=== PATIENT | male | born 1940 | race Caucasian/White ===

== ENCOUNTER → 2018-06-19 13:29 | Outpatient (CLI) | payer MEDICARE, MEDICAID, SELFPAY ==
--- NOTE | 2018-06-19 13:38 | DI.RAD.S_ITS ---
PROCEDURE: XR PELVIS 1-2V INDICATIONS: hip pain TECHNIQUE: 1 view(s) of the pelvis acquired. COMPARISON: None. FINDINGS: Bones: No fractures or dislocations. No suspicious bony lesions. Mild joint space narrowing and periarticular osteophyte formation at the bilateral hip joints. Soft tissues: Visualized bowel gas pattern is normal. No suspicious soft tissue calcifications. IMPRESSION: Bilateral hip osteoarthritis. No acute fracture. No osseous lesion. If symptoms and/or clinical suspicion for pathology persist, further assessment with repeat, or advanced imaging (e.g., CT, MRI, or bone scan) may be helpful for further assessment. Dictated by: Emily Grier M.D. on 06/19/2018 at 14:06 Approved by: Emily Grier M.D. on 06/19/2018 at 14:06
== END ==
PROVIDERS: PCP Family Medicine; Visit Provider Physician Assistant
DX: M16.0 Bilateral primary osteoarthritis of hip (principal)
CPT/HCPCS: 72170

== ENCOUNTER 2018-08-18 09:53 | Day surgery (SDC) | payer MEDICARE, MEDICAID, SELFPAY ==
[2018-08-18 10:15] VITALS: BP 121/77; PULSE 78; RESP 20; TEMP 36.6; O2SAT 97; BMI 29.7
[2018-08-18] MEDS: SODIUM CHLORIDE 0.9% 1,000 ML 200 ML IV (10:18)
--- NOTE | 2018-08-18 10:59 | PM.HP.1 ---
History of Present Illness Date Patient Seen: 08/18/18 Time Patient Seen: 10:59 Chief complaint: [id number] Narrative: Patient post an APR with end colostomy for rectal cancer. He is here for exam. He has been having some blood in his ostomy. He has had polyps removed since the operation. Patient History Medical History BPH (benign prostatic hyperplasia) (Chronic) Colostomy present (Chronic) Elevated PSA (Chronic) Anemia (Resolved) Cholelithiasis (Resolved) Colorectal cancer, stage II (Resolved) DVT, lower extremity (Resolved ~2010) Liver metastasis (Resolved) Tumor, thyroid (Resolved) Surgical History History of colon resection (Resolved 01/2007) History of thyroid surgery (Resolved) Hx of resection of liver (Resolved 01/2011) Hx of resection of rectum (Resolved 01/2016) Status post cholecystectomy Family & Social History Family History: Reviewed 08/18/18 by Lionel Banks MD Social History: household members none Tobacco & Substance use: Smoking Status Never smoker alcohol intake current Meds Home Medications Medication Instructions Recorded Confirmed Type levothyroxine [Synthroid] 50 mcg PO DAILY 08/18/18 08/18/18 History Allergies Allergy/AdvReac Type Severity Reaction Status Date / Time No Known Drug Allergies Allergy Verified 06/24/18 08:31 Review of Systems Review of Systems All systems reviewed & are unremarkable except as noted in HPI and below Gastrointestinal Comments: Having some diarrhea as well. Exam Vital Signs (past 8 hours): - 08/18/18 10:15 Temperature 98 F Pulse Rate 78 Respiratory Rate 20 Blood Pressure 121/77 Pulse Oximetry 97 Oxygen Delivery Method Room Air Narrative Exam Narrative: Operative gentleman no apparent distress. Lungs are clear no rales or rhonchi heart regular rate and rhythm no murmur gallop abdomen is protuberant soft nontender without mass. Ostomy in left abdomen. Alert and oriented x3. Assessment & Plan Plan: Assessment/Plan Narrative: Will perform an evaluation of his remaining colon. I have discussed the procedure and the rationale with the patient including risks of bleeding, perforation which would necessitate a major operation, failure to find remove all lesions and the potential to tattoo. They appeared to understand and wished to proceed.
--- NOTE | 2018-08-18 11:02 | PM.PREOP ---
Pre-operative Note Interval Note Pre-op Check: Yes History & Physical exam performed today by Physician Changes: No ASA Class (for procedural sedation): II
[2018-08-18] MEDS: MIDAZOLAM 5 MG/5 ML VIAL IV (11:25)
[2018-08-18] MEDS: fentaNYL 250 MCG/5 ML INJ IV (11:26)
--- NOTE | 2018-08-18 11:37 | PM.OP.ENDO ---
Operative Date/Time/Diagnoses Date of procedure: 08/18/18 Time of procedure: 11:37 Pre-op diagnosis: History of rectal cancer with mets to the liver Post-op diagnosis: same (Normal exam) Procedure & Clinicians Study performed: Colonoscopy of remaining segment of the colon Same procedure as scheduled: Yes Indications: History of colon cancer Procedure Notes SCOAP/Timeout: Performed Procedure in detail: Patient is placed supine on the stretcher. His ostomy bag was removed. Digital exam was unremarkable. Scope inserted in the ostomy and advanced through the remaining colon to the level of the cecum. The cecum was identified by the ileocecal valve and the appendiceal opening. I was unable to cannulate the ileocecal valve. Scope was gradually brought out. I could identify no mucosal lesions going in or out. The scope was removed the patient tolerated the procedure well. Scope withdrawal time: Not applicable Sedation minutes: 20 Findings: other findings (Normal residual colon) Specimen(s): none sent Complications: none Recommendations: Colonscopy in 3 years Follow up: as needed Disposition: PACU
[2018-08-18 11:46] VITALS: BP 128/67; PULSE 66; RESP 16; TEMP 37.1; O2SAT 98
--- NOTE | 2018-08-18 12:39 | SUR.PHASEII ---
checked on pt for serjio ryan belly soft, + bowel tone. no nausea no pain.
[2018-08-18 12:40] VITALS: BP 122/70; PULSE 62; RESP 17; TEMP 36.6; O2SAT 99
--- NOTE | 2018-08-18 12:55 | SUR.PHASEII ---
pt ambulated several times around station, vss, bellely soft with + bt's waiting for md to return call.
--- NOTE | 2018-08-18 13:20 | SUR.PHASEII ---
office called, no md, paged. pt's assessment unchanged, would like to go home.
--- NOTE | 2018-08-18 13:35 | SUR.PHASEII ---
dr holden in to see pt. ok to go home, colostomy bag w8ith opening placed so pt can let air out.
[2018-08-18 13:37] VITALS: BP 124/69; PULSE 66; RESP 16; TEMP 36.7; O2SAT 96
--- NOTE | 2018-08-18 13:59 | SUR.PHASEII ---
pt was deamed to go to phase 2 from endo room per tato bassett in pacu. shelby initially assumed care of pt, then care was taken over by this rn. dr holden came on unit, explained pt's inability to pass gas, soft belly and + bowel tones. new colostomy appliance placed by md so pt can open bag and release gas. pt left soon after and left in stable condition.
== END 2018-08-18 13:54 | disposition home or self-care (01) ==
PROVIDERS: PCP Family Medicine; Visit Provider Specialist
PROC: 0DJD8ZZ Inspection of Lower Intestinal Tract, Via Natural or Artificial Opening Endoscopic (ICD-10-PCS; CPT 45378; principal; 2018-08-18 10:45)
DX: K94.01 Colostomy hemorrhage (principal); Z85.038 Personal history of other malignant neoplasm of large intestine; Z86.010 Personal history of colon polyps; N40.0 Benign prostatic hyperplasia without lower urinary tract symptoms; Z93.3 Colostomy status
CPT/HCPCS: 44388; 99152; J2250; J3010

== ENCOUNTER → 2018-08-25 09:26 | Outpatient (CLI) | payer MEDICARE, MEDICAID, SELFPAY ==
[2018-08-25 10:23] LABS: Add Manual Diff / Slide Review NO; Basophils Percent Auto 0.8 % (0-2); Eosinophils Percent Auto 2.1 % (2-4); Hematocrit 41.5 % (41-53); Hemoglobin 14.2 g/dL (13.5-17.5); Lymphocytes Percent Auto 32.2 % (25-40); Mean Corpuscular HGB Conc 34.3 % (30-36); Mean Corpuscular Hemoglobin 31.1 PG (26-34); Mean Corpuscular Volume 90.4 fL (80-100); Monocytes Percent Auto 7.5 % (3-14); Neutrophils Absolute Auto 2700 /uL (3000-5900); Neutrophils Percent Auto 57.4 % (50-75); Platelet Count 167 X10^3/uL (150-400); Red Blood Cell Count 4.59 X10^6/uL (4.5-5.9); Red Cell Distribution Width 14.4 % (11.6-14.8); White Blood Cell Count 4.6 X10^3/uL (4.5-11.0)
[2018-08-25 10:32] LABS: Alanine Aminotransferase 33 IU/L (21-72); Albumin 4.4 g/dL (3.5-5.0); Albumin Globulin Ratio 1.3 (1.0-2.8); Alkaline Phosphatase 124 U/L (38-126); Aspartate Aminotransferase 34 IU/L (17-59); BUN Creatinine Ratio 27.1 (6-22); Bilirubin Total 1.1 mg/dL (0.2-1.3); Blood Urea Nitrogen 19 mg/dL (9-20); Carbon Dioxide 30 mmol/L (22-32); Chloride 102 mmol/L (98-107); Cholesterol 187 mg/dL (140-199); Estimated Glomerular Filt Rate > 60.0 mL/min (>60); Globulin 3.3 g/dL (1.7-4.1); Glucose 92 mg/dL (80-110); HDL Cholesterol 50 mg/dL (40-60); HEMOLYSIS < 15 (0-50); LDL Cholesterol Calculated 104 mg/dL (<100); Potassium 3.9 mmol/L (3.4-5.1); Sodium 144 mmol/L (137-145); Total Protein 7.7 g/dL (6.3-8.2); Triglycerides 164 mg/dL (35-150)
[2018-08-25 10:59] LABS: Free T3, Triiodothyronine Free 2.91 pg/mL (2.77-5.27); Free T4, Direct Thyroxine 0.79 ng/dL (0.78-2.19)
[2018-08-25 11:00] LABS: Prostate Specific Antigen Scrn 4.35 ng/mL (0.1-4.0)
[2018-08-25 11:13] LABS: Thyroid Stimulating Hormone 4.16 uIU/mL (0.47-4.68)
== END ==
PROVIDERS: PCP Family Medicine; Visit Provider Family Medicine
DX: E03.9 Hypothyroidism, unspecified (principal); Z87.438 Personal history of other diseases of male genital organs; Z85.038 Personal history of other malignant neoplasm of large intestine; Z12.5 Encounter for screening for malignant neoplasm of prostate
CPT/HCPCS: 36415; 80053; 80061; 84439; 84443; 84481; 85025; G0103

== ENCOUNTER → 2019-07-28 09:20 | Outpatient (CLI) | payer MEDICARE, MEDICAID, SELFPAY ==
[2019-07-28 11:02] LABS: Free T3, Triiodothyronine Free 2.95 pg/mL (2.77-5.27); Free T4, Direct Thyroxine 1.04 ng/dL (0.78-2.19)
[2019-07-28 11:16] LABS: Thyroid Stimulating Hormone 3.09 uIU/mL (0.47-4.68)
== END ==
PROVIDERS: PCP Family Medicine; Visit Provider Family Medicine
DX: E03.9 Hypothyroidism, unspecified (principal)
CPT/HCPCS: 36415; 84439; 84443; 84481

== ENCOUNTER → 2019-09-06 08:26 | Outpatient (CLI) | payer MEDICARE, MEDICAID, SELFPAY ==
--- NOTE | 2019-09-06 09:21 | DI.CT.S_ITS ---
PROCEDURE: CT CHEST ABD PEL W CON INDICATIONS: follow up colon and rectal cancer TECHNIQUE: After the administration of oral and intravenous contrast, 5 mm thick sections acquired from the lung apices to the symphysis. 5 mm coronal and sagittal reformats were performed, with additional 7 mm coronal MIP reformats through the lungs. For radiation dose reduction, the following was used: automated exposure control, adjustment of mA and/or kV according to patient size. COMPARISON: [facility], CT, CHEST/ABD/PEL WITH CONTRAST, 12/12/2017, 11:38. FINDINGS: Image quality: Excellent. CHEST: Lungs and pleura: No acute airspace opacities. Scarring or atelectasis at the right lung base. No pleural effusions or pneumothorax. Central and peripheral airways appear patent and normal in caliber. Mediastinum: Heart size is normal. Three-vessel coronary artery calcifications. No pericardial effusion. No mediastinal or hilar adenopathy by size criteria. Thoracic aorta and central pulmonary arteries are normal in size. Esophagus is normal in caliber. No hiatal hernia. Chest wall: Left-sided port with the catheter tip in the lower third of the SVC. No axillary or supraclavicular adenopathy by size criteria. Left thyroid gland is surgically absent. No nodule the right seen. Prior right sided rib fractures. ABDOMEN: Solid organs: Right hepatectomy. No focal lesion. Gallbladder is absent. Biliary system is non dilated. Pancreas is atrophic. Spleen is normal in size and enhancement. No adrenal nodules. Kidneys demonstrate normal size and enhancement, without hydronephrosis. Peritoneum and bowel: Left abdomen diverting colostomy. Post distal colectomy. No recurrent mass or adenopathy. Bowel loops demonstrate normal wall thickness and caliber. No free fluid or air. Nodes and vessels: No retroperitoneal or mesenteric adenopathy by size criteria. No AAA. Infrarenal IVC filter. Miscellaneous: Midline ventral abdominal wall rectus diastases. There is atrophy of the right abdominal wall must which are compared to the left. PELVIS: Genitourinary: Bladder wall thickness is normal. Marked prostatomegaly. Miscellaneous: No inguinal hernias or adenopathy. Bones: No suspicious bony lesions. Moderate multilevel degenerative change. No vertebral body compression fractures. IMPRESSION: 1. No recurrent mass. No suspicious adenopathy. Post distal colectomy and left diverting colostomy. 2. No solid organ metastasis. Post right hepatectomy. 3. No suspicious pulmonary or osseous lesion. Dictated by: Benjamin Cabezas M.D. on 09/06/2019 at 15:19 Approved by: Benjamin Cabezas M.D. on 09/06/2019 at 16:40
== END ==
PROVIDERS: PCP Family Medicine
DX: Z08 Encounter for follow-up examination after completed treatment for malignant neoplasm (principal); Z85.038 Personal history of other malignant neoplasm of large intestine; Z85.048 Personal history of other malignant neoplasm of rectum, rectosigmoid junction, and anus; N40.0 Benign prostatic hyperplasia without lower urinary tract symptoms; Z93.3 Colostomy status; Z90.49 Acquired absence of other specified parts of digestive tract
CPT/HCPCS: 71260; 74177; Q9967

== ENCOUNTER 2020-01-06 06:48 | Day surgery (SDC) | payer MEDICARE, MEDICAID, SELFPAY ==
[2020-01-06 07:35] VITALS: BP 133/77; PULSE 85; RESP 16; TEMP 36.8; O2SAT 97; BMI 28.6
[2020-01-06] MEDS: SODIUM CHLORIDE 0.9% 1,000 ML 84 ML IV (07:45)
--- NOTE | 2020-01-06 07:53 | P.HP_ITS ---
History of Present Illness History of Present Illness Date Patient Seen: 01/06/20 Time Patient Seen: 07:53 Chief complaint: [id number] Narrative: Patient is a gentleman here for a colonoscopy. He gets them every 1- 3 years. He has had colon resection/ APR and liver resection He has frequent polyps Patient History Medical History Anemia (Resolved) BPH (benign prostatic hyperplasia) (Chronic) Cholelithiasis (Resolved) Colorectal cancer, stage II (Resolved) Colostomy present (Chronic) DVT, lower extremity (Resolved ~2010) Elevated PSA (Chronic) Liver metastasis (Resolved) Tumor, thyroid (Resolved) Surgical History History of colon resection (Resolved 01/2007) History of thyroid surgery (Resolved) Hx of resection of liver (Resolved 01/2011) Hx of resection of rectum (Resolved 01/2016) Status post cholecystectomy Family & Social History Family History Father No problems noted. Mother No problems noted. Social History: household members none Tobacco & Substance use: Smoking Status Never smoker alcohol intake former Substance Use Type does not use Meds Home Medications and Allergies Home Medications Medication Instructions Recorded Confirmed Type adjuvant AS01B (PF)vial 1 of 2 0.5 ml IM ONCE #0.5 ml 08/28/18 01/06/20 Rx pneumoc 13-alexey conj-dip cr(PF) 0.5 0.5 ml IM ONCE #0.5 ml 08/28/18 01/06/20 Rx mL IM syringe finasteride 5 mg tablet 5 mg PO DAILY #90 tab 08/04/19 01/06/20 Rx levothyroxine 50 mcg tablet 50 mcg PO DAILY #90 tab 08/04/19 01/06/20 Rx flaxseed oil 1,000 mg PO BID 09/15/19 01/06/20 History Allergies Allergy/AdvReac Type Severity Reaction Status Date / Time No Known Drug Allergies Allergy Verified 01/06/20 07:34 Review of Systems Review of Systems ROS: Yes All systems reviewed with the patient and are negative except as otherwise documented Exam Vital Signs (past 8 hours): - 01/06/20 07:35 Temperature 98.2 F Pulse Rate 85 Respiratory Rate 16 Blood Pressure 133/77 Pulse Oximetry 97 Oxygen Delivery Method Room Air Narrative Exam Narrative: Pleasant cooperative patient no apparent distress. Lungs are clear to auscultation. No rales or rhonchi. Heart regular rate and rhythm no murmur gallop. Abdomen is soft nontender without mass. Patient has a right subcostal scar a midline scar on ostomy is left lower quadrant. No obvious hernias. Patient is alert and oriented x3. Assessment & Plan Assessment & Plan narrative: The patient for a screening colonoscopy. I have discussed the procedure with them. Risks of bleeding, perforation which would necessitate major operation, failure to find remove all lesions, the potential tattoo were all discussed. All questions were answered. They wished to proceed.
--- NOTE | 2020-01-06 07:55 | PM.PREOP ---
Pre-operative Note Interval Note History & Physical reviewed/Exam performed by Physician: Yes Changes to H&P: No ASA Class (for procedural sedation): II
[2020-01-06] MEDS: fentaNYL 250 MCG/5 ML INJ IV (07:59)
[2020-01-06] MEDS: MIDAZOLAM 5 MG/5 ML VIAL IV (07:59)
--- NOTE | 2020-01-06 08:21 | SUR.OPER ---
GLASSES IN LABELED BAG TO PACU WITH PATIENT.
[2020-01-06 08:32] VITALS: BP 116/72; PULSE 73; RESP 19; TEMP 36.6; O2SAT 97
[2020-01-06 08:37] VITALS: BP 115/71; PULSE 73; RESP 15; O2SAT 97
--- NOTE | 2020-01-06 08:40 | PM.OP.ENDO ---
Operative Date/Time/Diagnoses Date of procedure: 01/06/20 Time of procedure: 08:40 Pre-op diagnosis: History of rectal cancer post APR. Last exam over 2 years ago Post-op diagnosis: same Procedure & Clinicians Study performed: Colonoscopy Same procedure as scheduled: Yes Indications: Surveillance Surgeon: Lionel Banks Procedure Notes SCOAP/Timeout: Perform Procedure in detail: Patient was placed supine on the bed and underwent IV sedation consistency of fentanyl and Versed. This was directed by the surgeon. The scope was advanced through the left lower quadrant ostomy and into the colon. Scope was slowly advanced to the level the cecum. The cecum was identified by the ileocecal valve and the appendiceal opening. The scope was gradually brought out. I irrigated is a came out removing any debris that was present. The scope was brought very slowly through the ostomy this area. No lesions were seen. The patient tolerated the procedure well. Scope withdrawal time: Eight minutes Sedation minutes: 21 Specimen(s): none sent Complications: none Post-procedure Recommendations: Other recommendation (Colonoscopy in 2 years) Follow up: as needed Disposition: PACU
[2020-01-06 08:42] VITALS: BP 115/69; PULSE 73; RESP 19; TEMP 36.2; O2SAT 92
[2020-01-06 08:57] VITALS: BP 124/75; PULSE 66; RESP 16; TEMP 36.6; O2SAT 99
--- NOTE | 2020-01-06 09:01 | SUR.PHASEII ---
Lab drawn from left AC on one stick. Specimen to lab. Tolerated well. Called friend to notify of pending discharge from PACU.
[2020-01-06 09:52] LABS: Carcinoembryonic Antigen 0.8 ng/mL (0.1-3.0)
== END 2020-01-06 09:15 | disposition home or self-care (01) ==
PROVIDERS: PCP Family Medicine; Referring Provider Specialist; Visit Provider Specialist
PROC: 0DJD8ZZ Inspection of Lower Intestinal Tract, Via Natural or Artificial Opening Endoscopic (ICD-10-PCS; CPT 45378; principal; 2020-01-06 07:45)
DX: Z12.11 Encounter for screening for malignant neoplasm of colon (principal); Z85.040 Personal history of malignant carcinoid tumor of rectum; Z93.3 Colostomy status
CPT/HCPCS: G0105; 36415; 82378; 99152; J2250; J3010

== ENCOUNTER → 2020-12-06 16:53 | Outpatient (CLI) | payer MEDICARE, MEDICAID, SELFPAY ==
[2020-12-06] MEDS: COVID-19 VACC #1, MRNA(MOD) 100 MCG/0.5 ML VIAL IM (16:57)
== END ==
PROVIDERS: PCP Family Medicine; Visit Provider Internal Medicine
DX: Z23 Encounter for immunization (principal)
CPT/HCPCS: 0011A; 91301

== ENCOUNTER → 2021-01-04 10:45 | Outpatient (CLI) | payer MEDICARE, MEDICAID, SELFPAY ==
[2021-01-04] MEDS: COVID-19 VACC #2, MRNA(MOD) 100 MCG/0.5 ML VIAL IM (10:50)
== END ==
PROVIDERS: PCP Family Medicine; Visit Provider Internal Medicine
DX: Z23 Encounter for immunization (principal)
CPT/HCPCS: 0012A; 91301

== ENCOUNTER → 2021-03-27 12:52 | Outpatient (CLI) | payer MEDICARE, MEDICAID, SELFPAY ==
[2021-03-27 14:47] LABS: BUN Creatinine Ratio 20.6 (6-22); Blood Urea Nitrogen 14 mg/dL (9-20); Estimated Glomerular Filt Rate > 60.0 mL/min (>60)
[2021-03-27 14:56] LABS: Total Iron Binding Capacity 361 ug/dL (261-462)
[2021-03-27 15:19] LABS: Ferritin 69 ng/mL (18-464)
[2021-03-27 15:49] LABS: Folate 17.7 ng/mL (2.76-20.0); Vitamin B12 254 pg/mL (239-931)
== END ==
PROVIDERS: PCP Registered Nurse; Referring Provider Specialist; Visit Provider Specialist
DX: D64.9 Anemia, unspecified (principal); Z85.038 Personal history of other malignant neoplasm of large intestine
CPT/HCPCS: 36415; 82565; 82607; 82728; 82746; 83550; 84520

== ENCOUNTER → 2021-03-29 09:56 | Outpatient (CLI) | payer MEDICARE, MEDICAID, SELFPAY ==
--- NOTE | 2021-03-29 09:59 | DI.CT.S_ITS ---
PROCEDURE: CT CHEST ABD PEL W CON INDICATIONS: r/o met. post right colon and rectal cancer/liver resection TECHNIQUE: After the administration of oral and intravenous contrast, 5 mm thick sections acquired from the lung apices to the symphysis. 5 mm coronal and sagittal reformats were performed, with additional 7 mm coronal MIP reformats through the lungs. For radiation dose reduction, the following was used: automated exposure control, adjustment of mA and/or kV according to patient size. COMPARISON: [facility], CT, CT CHEST ABD PEL W CON, 09/06/2019, 10:29. [facility], CT, CHEST/ABD/PEL WITH CONTRAST, 12/12/2017, 11:38. FINDINGS: Image quality: Excellent. CHEST: Lungs and pleura: No acute airspace opacities. No pleural effusions or pneumothorax. Central and peripheral airways appear patent and normal in caliber. Mediastinum: Heart size is normal. No pericardial effusion. No mediastinal or hilar adenopathy by size criteria. Thoracic aorta and central pulmonary arteries are normal in size. Esophagus is normal in caliber. No hiatal hernia. A Port-A-Cath from left-sided approach extends across the midline into the distal SVC. Chest wall: No axillary or supraclavicular adenopathy by size criteria. Thyroid gland appears resected on the left and normal on the right. . ABDOMEN: Solid organs: Liver is reduced in size related to prior right hepatic lobe resection. The remaining liver is normal in enhancement. Gallbladder appears absent . Biliary system is non dilated. Pancreas enhances normally. Spleen is normal in size and enhancement. No adrenal nodules. Kidneys demonstrate normal size and enhancement, without hydronephrosis. Peritoneum and bowel: Bowel loops demonstrate normal wall thickness and caliber. No free fluid or air. Nodes and vessels: No retroperitoneal or mesenteric adenopathy by size criteria. Aorta and inferior vena cava are normal in size. IVC filter in place, expected positioning. Miscellaneous: No ventral hernias. Prior ostomy performed left lower abdomen. Through the abdomen and pelvis there is no evidence of adenopathy or recurrent neoplasm. PELVIS: Genitourinary: Bladder wall thickness is normal. Prostate enlargement is again noted, approximately 6.6 cm in maximal axial dimension. Miscellaneous: No inguinal hernias or adenopathy. Bones: No suspicious bony lesions. No vertebral body compression fractures. IMPRESSION: No mass lesion found, no adenopathy seen. Left lower abdomen ostomy site appears normal. Expected postsurgical changes after right hepatic lobe resection. No recurrent neoplasm suspected. Dictated by: Terry Cavanaugh M.D. on 03/29/2021 at 15:39 Approved by: Teryr Cavanaugh M.D. on 03/29/2021 at 15:45
== END ==
PROVIDERS: PCP Registered Nurse; Referring Provider Specialist; Visit Provider Specialist
DX: Z08 Encounter for follow-up examination after completed treatment for malignant neoplasm (principal); Z85.038 Personal history of other malignant neoplasm of large intestine; Z85.048 Personal history of other malignant neoplasm of rectum, rectosigmoid junction, and anus; Z85.89 Personal history of malignant neoplasm of other organs and systems
CPT/HCPCS: 71260; 74177; Q9967

== ENCOUNTER → 2021-04-03 13:05 | Outpatient (CLI) | payer MEDICARE, MEDICAID, SELFPAY ==
[2021-04-03 14:02] LABS: COVID19 -Nasal RAPID Negative (Negative)
== END ==
PROVIDERS: PCP Registered Nurse; Visit Provider Specialist
DX: Z20.822 Contact with and (suspected) exposure to COVID-19 (principal)
CPT/HCPCS: 87635; C9803

== ENCOUNTER → 2021-04-04 07:34 | Day surgery (SDC) | payer MEDICARE, MEDICAID, SELFPAY ==
[2021-04-04] VITALS (8 sets, daily range): BP systolic 117–135; BP diastolic 57–70; PULSE 62–83; RESP 10–20; TEMP 36.6–37; O2SAT 97–100; BMI 26.4
[2021-04-04] MEDS: LACTATED RINGERS 1,000 ML 100 ML IV (08:27)
--- NOTE | 2021-04-04 08:32 | PM.HP.1 ---
History of Present Illness History of Present Illness Date Patient Seen: 04/04/21 Time Patient Seen: 08:32 Chief complaint: SDC Narrative: The patient is a gentleman with a Port-A-Cath that is no longer in use. He is here for removal. Patient History Medical History Anemia BPH (benign prostatic hyperplasia) Cholelithiasis Colorectal cancer, stage II Colostomy present DVT, lower extremity (~2010) Elevated PSA History of secondary liver cancer Hx of malignant neoplasm of rectum Liver metastasis Prostate cancer screening declined Screening for malignant neoplasm of prostate Tumor, thyroid Surgical History History of colon resection (01/2007) History of thyroid surgery Hx of resection of liver (01/2011) Hx of resection of rectum (01/2016) Status post cholecystectomy Family & Social History Family History Father No problems noted. Mother No problems noted. Social History: household members none Tobacco & Substance use: Smoking Status Never smoker alcohol intake former Substance Use Type does not use Meds Home Medications and Allergies Home Medications Medication Instructions Recorded Confirmed Type adjuvant AS01B (PF)vial 1 of 2 0.5 ml IM ONCE #0.5 ml 08/28/18 03/30/21 Rx pneumoc 13-alexey conj-dip cr(PF) 0.5 0.5 ml IM ONCE #0.5 ml 08/28/18 03/30/21 Rx mL IM syringe flaxseed oil 1,000 mg PO BID 09/15/19 03/30/21 History Allergies Allergy/AdvReac Type Severity Reaction Status Date / Time No Known Drug Allergies Allergy Verified 02/10/21 15:25 Review of Systems Review of Systems Narrative: No cough or cold. No breathing issues. No heart problems. Ostomy is functioning well. Exam Vital Signs (past 8 hours): - 04/04/21 08:17 Temperature 98.6 F Pulse Rate 66 Respiratory Rate 20 Blood Pressure 135/70 Pulse Oximetry 99 Oxygen Delivery Method Room Air Narrative Exam Narrative: Patient is alert. Lungs are clear. No rales or rhonchi heart regular rate and rhythm without murmur gallop. Ostomy has an opaque bag over it and I left it in place. Abdomen is otherwise soft. Patient has no rashes in the area of his port which is in the left infraclavicular fossa. Assessment & Plan Assessment & Plan narrative: Patient with a port for removal. I have discussed the procedure with him. Small risk of bleeding infection scarring.
--- NOTE | 2021-04-04 08:34 | PM.PREOP ---
Pre-operative Note COVID-19 COVID-19 status: Negative Result date/Date tested (Pos, Neg/Pending): 04/03/21 Interval Note History & Physical reviewed/Exam performed by Physician: Yes Changes to H&P: No
[2021-04-04] MEDS: CEFAZOLIN 1 GM VIAL 2 GM IV (08:58)
--- NOTE | 2021-04-04 09:04 | SUR.OPER ---
Supine on padded OR bed, head on pillow, Left arm padded and tucked at side, right arm on padded arm board <90 degrees abduction, legs uncrossed, safety belt at thigh, tape over blanket over lower legs .
[2021-04-04] MEDS: BUPIVACAINE 0.5% (PF) VIAL 30 ML INJ (09:08)
--- NOTE | 2021-04-04 09:57 | PM.OP.1 ---
Operative Date/Time/Diagnoses Date of procedure: 04/04/21 Time of procedure: 09:41 Pre-op diagnosis: History of colon cancer. Port-A-Cath in place which is no longer in use. Post-op diagnosis: same Procedure & Clinicians Procedure: Removal of Port-A-Cath Same procedure as scheduled: Yes Indications: No longer in use Port-A-Cath Surgeon: Lionel Banks Click Yes if Unassisted: Yes Anesthesia Type: General Operative Notes Findings: Port removed intact Closure Type: primary Specimen(s): none sent Prosthetic devices, grafts, tissues, transplants, or devices: None Estimated Blood Loss (mL): 5 Procedure in detail: Patient is placed supine on his table in the operating room and underwent general LMA anesthesia. He was prepped and draped in the usual fashion. Local anesthetic was infiltrated in a field block fashion an incision made through the old scar. Identified the catheter and it from surrounding structures. I placed a pursestring around the catheter in the subcu and pulled the catheter out cinching the pursestring down to close off the canal. I then removed the port including the anchoring stitches and the investing pocket. The subcu was closed with interrupted 3-0 Vicryl. The skin was closed a running 4-0 Vicryl subcuticular stitch and Steri-Strips. Dressing was applied and the patient tolerated the procedure well. Complications: none Post-operative Condition: stable Disposition: PACU
--- NOTE | 2021-04-04 10:30 | SUR.PHASEII ---
Note: pt declined ice bag. States does not need it. Pt teaching regarding benefit performed. Pt politely declined taking ice pack with him upon discharge.
== END | disposition home or self-care (01) ==
PROVIDERS: PCP Registered Nurse; Referring Provider Specialist; Visit Provider Specialist
PROC: (CPT 36590; principal; 2021-04-04 08:45)
DX: Z45.2 Encounter for adjustment and management of vascular access device (principal)
CPT/HCPCS: 36590; J0690; J2704; J3010

== ENCOUNTER → 2021-05-31 10:24 | Outpatient (CLI) | payer MEDICARE, MEDICAID, SELFPAY ==
[2021-05-31 11:12] LABS: Add Manual Diff / Slide Review NO; Basophils Absolute Auto 0 /uL (0-100); Eosinophils Absolute Auto 100 /uL (0-450); Eosinophils Percent Auto 2.1 % (2-4); Hematocrit 39.1 % (41-53); Hemoglobin 13.2 g/dL (13.5-17.5); Lymphocytes Absolute Auto 1600 /uL (1100-4500); Lymphocytes Percent Auto 37.3 % (25-40); Mean Corpuscular HGB Conc 33.8 % (30-36); Mean Corpuscular Hemoglobin 30.9 PG (26-34); Mean Corpuscular Volume 91.2 fL (80-100); Monocytes Absolute Auto 500 /uL (0-900); Monocytes Percent Auto 10.7 % (3-14); Neutrophils Absolute Auto 2100 /uL (1500-7000); Neutrophils Percent Auto 48.9 % (50-75); Platelet Count 162 X10^3/uL (150-400); Red Blood Cell Count 4.28 X10^6/uL (4.5-5.9); White Blood Cell Count 4.3 X10^3/uL (4.5-11.0)
[2021-05-31 12:20] LABS: Alanine Aminotransferase 24 IU/L (<50); Albumin 3.9 g/dL (3.5-5.0); Albumin Globulin Ratio 1.2 (1.0-2.8); Alkaline Phosphatase 99 U/L (38-126); Aspartate Aminotransferase 33 IU/L (17-59); BUN Creatinine Ratio 34.8 (6-22); Bilirubin Total 0.7 mg/dL (0.2-1.3); Blood Urea Nitrogen 24 mg/dL (9-20); Calcium 9.3 mg/dL (8.4-10.2); Carbon Dioxide 31 mmol/L (22-32); Chloride 103 mmol/L (98-107); Estimated Glomerular Filt Rate > 60.0 mL/min (>60); Globulin 3.2 g/dL (1.7-4.1); Glucose 88 mg/dL (80-110); HEMOLYSIS < 15 (0-50); Potassium 4.4 mmol/L (3.4-5.1); Sodium 138 mmol/L (137-145); Total Protein 7.1 g/dL (6.3-8.2)
[2021-05-31 12:41] LABS: Free T4, Direct Thyroxine 0.61 ng/dL (0.78-2.19)
[2021-05-31 12:55] LABS: Thyroid Stimulating Hormone 5.58 uIU/mL (0.47-4.68)
[2021-06-04 08:40] LABS: Fecal Immunochemical Test Negative (Negative)
== END ==
PROVIDERS: PCP Registered Nurse; Referring Provider Registered Nurse; Visit Provider Registered Nurse
DX: D64.9 Anemia, unspecified (principal); R53.83 Other fatigue; Z86.39 Personal history of other endocrine, nutritional and metabolic disease
CPT/HCPCS: 36415; 80053; 82274; 84439; 84443; 85025

== ENCOUNTER → 2021-07-19 10:05 | Outpatient (CLI) | payer MEDICARE, MEDICAID, SELFPAY | PROVIDERS: PCP Registered Nurse; Referring Provider Registered Nurse; Visit Provider Registered Nurse | DX: E03.9 Hypothyroidism, unspecified (principal); R53.83 Other fatigue | CPT/HCPCS: 36415; 84443 ==

== ENCOUNTER → 2021-11-13 10:54 | Outpatient (CLI) | payer MEDICARE, MEDICAID, SELFPAY ==
[2021-11-13 11:19] LABS: Add Manual Diff / Slide Review NO; Basophils Absolute Auto 0 /uL (0-100); Basophils Percent Auto 1.1 % (0-2); Eosinophils Absolute Auto 100 /uL (0-450); Eosinophils Percent Auto 2.5 % (2-4); Hematocrit 39.1 % (41-53); Hemoglobin 13.5 g/dL (13.5-17.5); Lymphocytes Absolute Auto 1300 /uL (1100-4500); Lymphocytes Percent Auto 33.8 % (25-40); Mean Corpuscular HGB Conc 34.5 % (30-36); Mean Corpuscular Hemoglobin 31.3 PG (26-34); Mean Corpuscular Volume 90.8 fL (80-100); Monocytes Absolute Auto 300 /uL (0-900); Monocytes Percent Auto 8.9 % (3-14); Neutrophils Absolute Auto 2100 /uL (1500-7000); Neutrophils Percent Auto 53.7 % (50-75); Platelet Count 143 X10^3/uL (150-400); Red Blood Cell Count 4.31 X10^6/uL (4.5-5.9); Red Cell Distribution Width 13.9 % (11.6-14.8); White Blood Cell Count 3.9 X10^3/uL (4.5-11.0)
[2021-11-13 11:31] LABS: Alanine Aminotransferase 20 IU/L (<50); Albumin 4.2 g/dL (3.5-5.0); Albumin Globulin Ratio 1.4 (1.0-2.8); Alkaline Phosphatase 92 U/L (38-126); Aspartate Aminotransferase 27 IU/L (17-59); BUN Creatinine Ratio 26.9 (6-22); Bilirubin Total 0.6 mg/dL (0.2-1.3); Blood Urea Nitrogen 18 mg/dL (9-20); Calcium 9.2 mg/dL (8.4-10.2); Carbon Dioxide 30 mmol/L (22-32); Chloride 104 mmol/L (98-107); Estimated Glomerular Filt Rate > 60.0 mL/min (>60); Globulin 3.1 g/dL (1.7-4.1); Glucose 105 mg/dL (80-110); HEMOLYSIS < 15 (0-50); Potassium 4.5 mmol/L (3.4-5.1); Sodium 139 mmol/L (137-145); Total Protein 7.3 g/dL (6.3-8.2)
[2021-11-14 09:16] LABS: PSA Free % 12.4 % (.); PSA, Total 6.3 ng/mL (0.0-4.0)
== END ==
PROVIDERS: Internal Medicine Hematology & Oncology; PCP Registered Nurse; Referring Provider Urology; Visit Provider Urology
DX: R97.20 Elevated prostate specific antigen [PSA] (principal); C18.9 Malignant neoplasm of colon, unspecified
CPT/HCPCS: 36415; 80053; 82378; 84153; 84154; 85025

== ENCOUNTER → 2022-01-07 09:23 | Outpatient (CLI) | payer MEDICARE, MEDICAID, SELFPAY ==
[2022-01-07 11:25] LABS: COVID19 -Nasal RAPID Negative (Negative)
== END ==
PROVIDERS: PCP Registered Nurse; Visit Provider Surgery
DX: Z20.822 Contact with and (suspected) exposure to COVID-19 (principal)
CPT/HCPCS: 87635; C9803

== ENCOUNTER 2022-01-08 08:19 | Day surgery (SDC) | payer MEDICARE, MEDICAID, SELFPAY ==
--- NOTE | 2022-01-08 | PATH_ITS ---
[facility] Accession Number: [id number] . 01 Material submitted: . colon - TRANSVERSE COLON POLYP . 02 Diagnosis: . Transverse Colon, Polyp, Biopsy: Polypoid colonic mucosa with increased intraepithelial lymphocytes, suggestive of lymphocytic colitis. Additional levels were examined. Negative for dysplasia and malignancy. PENDING SALE TO [facility] 01/11/2022 1653 Local . 02 Electronically signed: . Danni Cintron MD, Pathologist NPI- [id number] . 01 Gross description: . TRANSVERSE COLON POLYP: Received in formalin is 1 fragment(s) of bartholomew, soft tissue measuring 0.3 x 0.3 x 0.2 cm submitted entirely in 1 cassette(s) /HOWARD 01/09/20222022 Local . 02 Pathologist provided ICD-10: Z85.048 . 02 CPT . 933626 Specimen Comment: A courtesy copy of this report has been sent to [phone] Performed at: 01 [facility] Cytology [address] [facility], [place], [place] [id number] MD Petey Mcdonald MD Phone: [phone] Performed at: 02 [facility] [address] [place], [place] [id number] MD Danni Cintron MD Phone: [phone]
[2022-01-08 09:19] VITALS: BMI 24.5
[2022-01-08] MEDS: fentaNYL 250 MCG/5 ML INJ IV (09:34)
[2022-01-08] MEDS: MIDAZOLAM 5 MG/5 ML VIAL IV (09:35)
[2022-01-08 09:39] VITALS: BP 135/81; PULSE 641; RESP 16; TEMP 36.6; O2SAT 99
[2022-01-08] MEDS: LACTATED RINGERS 1,000 ML 200 ML IV (09:43)
--- NOTE | 2022-01-08 09:46 | PM.HP.1 ---
History of Present Illness History of Present Illness Date Patient Seen: 01/08/22 Time Patient Seen: 09:46 Chief complaint: SDC Narrative: 81-year-old man remote history of rectal cancer status post low anterior resection with diverting colostomy. Here for surveillance colonoscopy. Last colonoscopy 2-3 years ago and normal per report. No blood per ostomy no abdominal pain nausea vomiting unintentional weight loss. 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 Mother No problems noted. Social History: household members none Tobacco & Substance use: Smoking Status Never smoker alcohol intake former Substance Use Type does not use Meds Home Medications and Allergies Home Medications Medication Instructions Recorded Confirmed Type finasteride 5 mg tablet 5 mg PO DAILY #30 tab 05/17/21 01/08/22 Rx betamethasone valerate 0.1 % 1 applic TOPICAL BID PRN #45 g 07/27/21 01/08/22 Rx topical ointment levothyroxine 25 mcg tablet 25 mcg PO DAILY #90 tab 07/27/21 01/08/22 Rx (Synthroid) aspirin 81 mg tablet 81 mg PO DAILY 11/29/21 01/08/22 History Allergies Allergy/AdvReac Type Severity Reaction Status Date / Time No Known Drug Allergies Allergy Verified 01/08/22 09:18 Exam Vital Signs (past 8 hours): - 01/08/22 09:39 Temperature 97.8 F Pulse Rate 641 H Respiratory Rate 16 Blood Pressure 135/81 Pulse Oximetry 99 Oxygen Delivery Method Room Air Narrative Exam Narrative: GENERAL: Elderly male in no apparent distress HEENT: No scleral icterus CV: Regular rate, no peripheral edema LUNGS: No increased work of breathing. Patient speaks in full sentences without oxygen support. ABDOMEN: Soft, non-tender, non-distended NEURO: Nonfocal, normal strength throughout SKIN: Warm and dry Assessment & Plan Assessment and plan (1) Hx of malignant neoplasm of rectum: Status: Acute Assessment & Plan narrative: The patient requires colorectal screening and colonoscopy is recommended secondary to history of rectal cancer. Technical details were discussed. Risks, benefits, alternatives explained. Risks including but not limited to myocardial infarction, aspiration, bleeding, pain, missed lesion, incomplete examination, need for further radiographic studies, colonic perforation, and need for major abdominal surgery were discussed. All questions were answered to their satisfaction, and they are in agreement with this plan. Time Spent With Patient Critical Care time: I spent a total of [] minutes of critical care time on this patient's care today; this time is exclusive of procedural time.
--- NOTE | 2022-01-08 09:54 | SUR.OPER ---
GLASSES IN LABELED BAG TO PACU WITH PATIENT
--- NOTE | 2022-01-08 10:14 | PM.OP.COLON ---
Operative Date/Time/Diagnoses Date of procedure: 01/08/22 Time of procedure: 10:15 Pre-op diagnosis: History of rectal cancer Post-op diagnosis: same Procedure & Clinicians Study performed: Colonoscopy Same procedure as scheduled: Yes Indications: History of rectal cancer status post APR Surgeon: Erasmo Gan Procedure Notes Procedure in detail: Medications: Conscious sedation using 3mg IV midazolam and 50mcg IV of fentanyl The history and physical was performed/updated and the patient is ASA class is 2. The procedure was discussed in detail with the patient. Potential risks complications including infection, bleeding, missed diagnosis, perforation, need for surgery, and were explained. Their questions were answered and informed consent was obtained. Patient was brought to the procedure room and placed standard monitoring equipment. The patient's vital signs were monitored continuously throughout the entire procedure. Prior to starting time-out was performed. The patient was placed in the left lateral recumbent position. Procedural sedation was administered. Examination began with a thorough inspection of the perianal area there was no evidence of fissures, fistulae, external hemorrhoids or cutaneous malignancy. The colonoscopy scope was then placed into left lower quadrant end colostomy and was advanced to the cecum, which was identified by the ileocecal valve, the appendiceal orifice and the confluence of the taenia. The scope was then slowly withdrawn examining colon thoroughly in all directions, irrigating it of any residual stool. FINDINGS 1. Colonic-colonic anastomosis. Patent without evidence of recurrent cancer 2. Transverse colon 5 mm polyp removed with biopsy forceps The patient tolerated the procedure well. They will be discharged once criteria are met. The prep was of good/excellent quality. The withdrawl time was * minutes. The sedation time was * minutes. Specimen(s): other (Transverse colon) Complications: none Impression: Colonic polyp Post-procedure Recommendations: Other recommendation(s) (Colonoscopy 2 years) Disposition: same day surgery
[2022-01-08 10:15] VITALS: BP 121/78; PULSE 73; RESP 14; TEMP 36.4; O2SAT 97
[2022-01-08 10:20] VITALS: BP 121/78; PULSE 69; RESP 13; O2SAT 95
[2022-01-08 10:35] VITALS: BP 117/76; PULSE 60; RESP 14; O2SAT 97
[2022-01-08 10:38] VITALS: BP 123/88; PULSE 61; RESP 14; TEMP 36; O2SAT 98
== END 2022-01-08 10:45 | disposition home or self-care (01) ==
PROVIDERS: PCP Registered Nurse; Referring Provider Surgery; Visit Provider Surgery
PROC: 0DJD8ZZ Inspection of Lower Intestinal Tract, Via Natural or Artificial Opening Endoscopic (ICD-10-PCS; CPT 45378; principal; 2022-01-08 10:00)
DX: Z12.11 Encounter for screening for malignant neoplasm of colon (principal); Z85.048 Personal history of other malignant neoplasm of rectum, rectosigmoid junction, and anus; Z93.3 Colostomy status
CPT/HCPCS: 44389; J2250; J3010

== ENCOUNTER → 2022-05-14 15:21 | Outpatient (CLI) | payer MEDICARE, MEDICAID, SELFPAY ==
[2022-05-14 15:58] LABS: Add Manual Diff / Slide Review NO; Basophils Absolute Auto 0 /uL (0-100); Basophils Percent Auto 1.2 % (0-2); Eosinophils Absolute Auto 100 /uL (0-450); Eosinophils Percent Auto 1.6 % (2-4); Hematocrit 35.8 % (41-53); Hemoglobin 12.4 g/dL (13.5-17.5); Lymphocytes Absolute Auto 1000 /uL (1100-4500); Lymphocytes Percent Auto 25.9 % (25-40); Mean Corpuscular HGB Conc 34.7 % (30-36); Mean Corpuscular Hemoglobin 31.2 PG (26-34); Mean Corpuscular Volume 89.7 fL (80-100); Monocytes Absolute Auto 300 /uL (0-900); Monocytes Percent Auto 8.3 % (3-14); Neutrophils Absolute Auto 2400 /uL (1500-7000); Platelet Count 145 X10^3/uL (150-400); Red Blood Cell Count 3.98 X10^6/uL (4.5-5.9); Red Cell Distribution Width 13.9 % (11.6-14.8); White Blood Cell Count 3.9 X10^3/uL (4.5-11.0)
[2022-05-14 17:11] LABS: Alanine Aminotransferase 18 IU/L (<50); Albumin 3.7 g/dL (3.5-5.0); Albumin Globulin Ratio 1.4 (1.0-2.8); Alkaline Phosphatase 96 U/L (38-126); Aspartate Aminotransferase 32 IU/L (17-59); Bilirubin Total 0.5 mg/dL (0.2-1.3); Blood Urea Nitrogen 17 mg/dL (9-20); Calcium 8.4 mg/dL (8.4-10.2); Carbon Dioxide 27 mmol/L (22-32); Chloride 104 mmol/L (98-107); Estimated Glomerular Filt Rate > 60 mL/min (>60); Globulin 2.7 g/dL (1.7-4.1); Glucose 141 mg/dL (80-110); Potassium 4.3 mmol/L (3.4-5.1); Sodium 137 mmol/L (137-145); Total Protein 6.4 g/dL (6.3-8.2)
[2022-05-15 05:29] LABS: PSA Free % 18.3 % (.); PSA, Total 2.9 ng/mL (0.0-4.0)
[2022-05-16 04:33] LABS: Carcinoembryonic Antigen 0.9 ng/mL (0.1-3.0); HEMOLYSIS < 15 (0-50)
== END ==
PROVIDERS: Internal Medicine Hematology & Oncology; PCP Registered Nurse; Referring Provider Urology; Visit Provider Urology
DX: R97.20 Elevated prostate specific antigen [PSA] (principal); C18.9 Malignant neoplasm of colon, unspecified; Z85.048 Personal history of other malignant neoplasm of rectum, rectosigmoid junction, and anus; Z93.3 Colostomy status; Z95.828 Presence of other vascular implants and grafts
CPT/HCPCS: 36415; 80053; 82378; 84153; 84154; 85025

== ENCOUNTER → 2022-05-20 15:34 | Outpatient (CLI) | payer MEDICARE, MEDICAID, SELFPAY ==
--- NOTE | 2022-05-20 15:35 | DI.RAD.S_ITS ---
PROCEDURE: XR KUB INDICATIONS: History of bladder stone TECHNIQUE: One view of the abdomen acquired. COMPARISON: None. FINDINGS: Surgical changes and devices: Infrarenal IVC filter noted. Surgical clips present in the right upper quadrant. Bowel: Bowel gas pattern is normal. Moderate fecal debris in the right colon. Soft tissues: No suspicious abdominal calcifications. Visualized solid organ contours appear normal in size. Phleboliths noted in the right hemipelvis Bones: No suspicious bony lesions. IMPRESSION: Moderate fecal debris in the right colon. Nonobstructive bowel gas pattern. Consider follow-up CT if there is clinical concern for bladder stone Approved by: Ziyad Lundberg M.D. on 05/20/2022 at 18:39
== END ==
PROVIDERS: PCP Registered Nurse; Referring Provider Urology; Visit Provider Urology
DX: C78.7 Secondary malignant neoplasm of liver and intrahepatic bile duct (principal); Z85.048 Personal history of other malignant neoplasm of rectum, rectosigmoid junction, and anus; R39.9 Unspecified symptoms and signs involving the genitourinary system; R97.20 Elevated prostate specific antigen [PSA]; Z87.448 Personal history of other diseases of urinary system
CPT/HCPCS: 74018; 99213

== ENCOUNTER → 2023-05-15 12:37 | Outpatient (CLI) | payer MEDICARE, MEDICAID, SELFPAY ==
[2023-05-17 09:30] LABS: PSA Free % 20.6 % (.); PSA, Total 1.8 ng/mL (0.0-4.0)
== END ==
PROVIDERS: Referring Provider Urology; Visit Provider Urology
DX: R97.20 Elevated prostate specific antigen [PSA] (principal)
CPT/HCPCS: 36415; 84153; 84154

== ENCOUNTER → 2023-06-12 15:53 | Outpatient (CLI) | payer MEDICARE, MEDICAID, SELFPAY ==
[2023-06-12 16:56] LABS: BUN Creatinine Ratio 29.2 (6-22); Blood Urea Nitrogen 19 mg/dL (9-20); Calcium 8.9 mg/dL (8.4-10.2); Carbon Dioxide 30 mmol/L (22-32); Chloride 101 mmol/L (98-107); Cholesterol 171 mg/dL (140-199); Estimated Glomerular Filt Rate > 60 mL/min (>60); Glucose 97 mg/dL (80-110); HDL Cholesterol 52 mg/dL (40-60); HEMOLYSIS < 15 (0-50); LDL Cholesterol Calculated 91 mg/dL (<100); Potassium 4.8 mmol/L (3.4-5.1); Sodium 137 mmol/L (137-145); Triglycerides 138 mg/dL (35-150)
[2023-06-12 17:23] LABS: TSH w/ Reflex to FT4 6.09 uIU/mL (0.47-4.68)
[2023-06-12 18:00] LABS: Free T4, Direct Thyroxine 0.68 ng/dL (0.78-2.19)
[2023-06-14 04:12] LABS: x Labcorp Estim. Avg Glu (eAG) 123 mg/dL (.); x Labcorp Hemoglobin A1c 5.9 % (4.8-5.6)
== END ==
PROVIDERS: PCP Internal Medicine; Referring Provider Internal Medicine; Visit Provider Internal Medicine
DX: E03.9 Hypothyroidism, unspecified; E78.2 Mixed hyperlipidemia; N40.0 Benign prostatic hyperplasia without lower urinary tract symptoms; R73.01 Impaired fasting glucose
CPT/HCPCS: 36415; 80048; 80061; 83036; 84439; 84443

== ENCOUNTER → 2023-11-20 14:02 | Outpatient (CLI) | payer MEDICARE, MEDICAID, SELFPAY ==
[2023-11-20 14:28] LABS: Add Manual Diff / Slide Review NO; Basophils Absolute Auto 0 /uL (0-100); Basophils Percent Auto 0.8 % (0-2); Eosinophils Absolute Auto 100 /uL (0-450); Eosinophils Percent Auto 1.5 % (2-4); Hematocrit 38.1 % (41-53); Hemoglobin 13.1 g/dL (13.5-17.5); Lymphocytes Absolute Auto 1700 /uL (1100-4500); Lymphocytes Percent Auto 34.3 % (25-40); Mean Corpuscular HGB Conc 34.3 % (30-36); Mean Corpuscular Hemoglobin 30.7 PG (26-34); Mean Corpuscular Volume 89.6 fL (80-100); Monocytes Absolute Auto 400 /uL (0-900); Monocytes Percent Auto 8.7 % (3-14); Neutrophils Absolute Auto 2700 /uL (1500-7000); Neutrophils Percent Auto 54.7 % (50-75); Platelet Count 170 X10^3/uL (150-400); Red Blood Cell Count 4.25 X10^6/uL (4.5-5.9); Red Cell Distribution Width 14.1 % (11.6-14.8)
[2023-11-20 14:45] LABS: Alanine Aminotransferase 17 IU/L (<50); Albumin 3.9 g/dL (3.5-5.0); Albumin Globulin Ratio 1.2 (1.0-2.8); Alkaline Phosphatase 77 U/L (38-126); Aspartate Aminotransferase 26 IU/L (17-59); BUN Creatinine Ratio 33.3 (6-22); Bilirubin Total 0.8 mg/dL (0.2-1.3); Blood Urea Nitrogen 22 mg/dL (9-20); Calcium 9.1 mg/dL (8.4-10.2); Carbon Dioxide 27 mmol/L (22-32); Chloride 104 mmol/L (98-107); Estimated Glomerular Filt Rate > 60 mL/min (>60); Globulin 3.2 g/dL (1.7-4.1); Glucose 99 mg/dL (80-110); HEMOLYSIS < 15 (0-50); Potassium 4.4 mmol/L (3.4-5.1); Sodium 136 mmol/L (137-145); Total Protein 7.1 g/dL (6.3-8.2)
== END ==
LOC: LAB 14:06
PROVIDERS: PCP Internal Medicine; Referring Provider Internal Medicine Hematology & Oncology; Visit Provider Internal Medicine Hematology & Oncology
DX: C78.7 Secondary malignant neoplasm of liver and intrahepatic bile duct (principal)
CPT/HCPCS: 36415; 80053; 82378; 85025

== ENCOUNTER 2024-01-20 08:33 | Day surgery (SDC) | payer MEDICARE, MEDICAID, SELFPAY ==
[2024-01-20] MEDS: LACTATED RINGERS 1,000 ML 42 ML IV (09:01)
[2024-01-20 09:08] VITALS: BP 142/80; PULSE 70; RESP 18; TEMP 36.4; O2SAT 100
--- NOTE | 2024-01-20 09:18 | P.HP_ITS ---
History of Present Illness History of Present Illness Date Patient Seen: 01/20/24 Time Patient Seen: 09:18 Chief complaint: SDC Narrative: 83-year-old man remote history of rectal cancer status post low anterior resection with diverting colostomy. Here for surveillance colonoscopy. Last colonoscopy 2 years ago normal.. No blood per ostomy no abdominal pain nausea vomiting unintentional weight loss. [facility] Medical History Impaired fasting glucose History of pulmonary embolism Gender dysphoria in adult Hx of malignant neoplasm of rectum Anemia Tumor, thyroid Cholelithiasis Colostomy present BPH (benign prostatic hyperplasia) Elevated PSA Surgical History History of thyroid surgery History of colon resection (01/2007) Hx of resection of liver (01/2011) Hx of resection of rectum (01/2016) Status post cholecystectomy Family History Father No problems noted. Mother No problems noted. Social History details: Single, no children, retired milling operator, brother in [place] household members: none Smoking Status: Never smoker alcohol intake: former substance use type: does not use Meds Home Medications and Allergies Home Medications Medication Instructions Recorded Confirmed Type finasteride 5 mg tablet 5 mg PO DAILY BPH #90 tabs 05/22/23 01/20/24 Rx levothyroxine 50 mcg tablet 50 mcg PO DAILY #90 tabs 06/13/23 01/20/24 Rx Allergies Allergy/AdvReac Type Severity Reaction Status Date / Time No Known Drug Allergies Allergy Verified 01/20/24 09:06 Exam Vital Signs (past 8 hours): - 01/20/24 09:08 Temperature 97.6 F Pulse Rate 70 Respiratory Rate 18 Blood Pressure 142/80 H Pulse Oximetry 100 Oxygen Delivery Method Room Air Oxygen Delivery Method Room Air Narrative Exam Narrative: General adult man alert oriented no acute distress Chest nonlabored respiration Extremities warm well perfused Assessment & Plan Assessment & Plan narrative: The patient requires colorectal screening and colonoscopy is recommended. Technical details were discussed. Risks, benefits, alternatives explained. Risks including but not limited to myocardial infarction, aspiration, bleeding, pain, missed lesion, incomplete examination, need for further radiographic studies, colonic perforation, and need for major abdominal surgery were discussed. All questions were answered to their satisfaction, and they are in agreement with this plan.
[2024-01-20 09:56] VITALS: BP 101/64; PULSE 66; RESP 12; TEMP 36.7; O2SAT 97
[2024-01-20 10:01] VITALS: BP 119/75; PULSE 65; RESP 12; TEMP 36.6; O2SAT 98
[2024-01-20 10:06] VITALS: BP 102/76; PULSE 67; RESP 12; O2SAT 99
--- NOTE | 2024-01-20 10:08 | P.OP.COLON_ITS ---
Operative Date/Time/Diagnoses Date of procedure: 01/20/24 Time of procedure: 10:08 Pre-op diagnosis: History of rectal cancer Procedure & Clinicians Study performed: Sigmoidoscopy Same procedure as scheduled: Yes Indications: History of rectal cancer Surgeon: Erasmo Gan Procedure Notes Procedure in detail: The history and physical was performed/updated and the patient is ASA class is 2. The procedure was discussed in detail with the patient. Potential risks co mplications including infection, bleeding, missed diagnosis, perforation, need for surgery, and were explained. Their questions were answered and informed consent was obtained. Patient was brought to the procedure room and placed standard monitoring equipment. The patient's vital signs were monitored continuously throughout the entire procedure. Prior to starting time-out was performed. Patient was placed supine Procedural sedation was administered by anesthesia. The colonoscopy scope was then placed into colostomy was advanced to the cecum, which was identified by the ileocecal valve, the appendiceal orifice and the confluence of the taenia. The scope was then slowly withdrawn examining colon thoroughly in all directions, irrigating it of any residual stool. The patient tolerated the procedure well. They will be discharged once criteria are met. The prep was of good/excellent quality. Withdrawal time is not indicated FINDINGS * Normal sigmoidoscopy. No masses polyps or inflammation Specimen(s): none sent Impression: Normal sigmoidoscopy Post-procedure Recommendations: Colonoscopy in 3 years Disposition: same day surgery
== END 2024-01-20 10:24 | disposition home or self-care (01) ==
PROVIDERS: PCP Internal Medicine; Referring Provider Surgery; Visit Provider Surgery
PROC: 0DJD8ZZ Inspection of Lower Intestinal Tract, Via Natural or Artificial Opening Endoscopic (ICD-10-PCS; CPT 45378; principal; 2024-01-20 09:45)
DX: Z12.11 Encounter for screening for malignant neoplasm of colon (principal); Z85.048 Personal history of other malignant neoplasm of rectum, rectosigmoid junction, and anus; Z93.3 Colostomy status; Z90.49 Acquired absence of other specified parts of digestive tract
CPT/HCPCS: 44388; J2704

== ENCOUNTER → 2024-04-27 10:04 | Outpatient (CLI) | payer MEDICARE, MEDICAID, SELFPAY ==
[2024-04-27 10:48] LABS: Influenza A - CEPHEID Flu A NEGATIVE (NEGATIVE); Influenza B - CEPHEID Flu B NEGATIVE (NEGATIVE); Respiratory Syncytial Virus Negative (Negative)
[2024-04-27 10:56] LABS: COVID-19 CEPHEID 4-PLEX PCR Negative (Negative)
== END ==
PROVIDERS: PCP Internal Medicine; Visit Provider Physician Assistant
DX: R05.3 Chronic cough (principal)
CPT/HCPCS: 0241U

== ENCOUNTER → 2024-04-27 10:18 | Outpatient (CLI) | payer MEDICARE, MEDICAID, SELFPAY ==
--- NOTE | 2024-04-27 10:20 | DI.RAD.S_ITS ---
PROCEDURE: XR KUB INDICATIONS: Bladder stone TECHNIQUE: One view of the abdomen acquired. COMPARISON: [facility], CR, XR KUB, 05/20/2022, 16:05. FINDINGS: Surgical changes and devices: IVC filter. Right upper quadrant surgical clips. Bowel: Bowel gas pattern is normal. Soft tissues: No suspicious abdominal calcifications. Visualized solid organ contours appear normal in size. Bones: No suspicious bony lesions. IMPRESSION: No bladder stone visualized. Dictated by: Amado Hull M.D. on 04/27/2024 at 12:16 Approved by: Amado Hull M.D. on 04/27/2024 at 12:16
[2024-04-28 14:09] LABS: PSA, Total 2.5 ng/mL (0.0-4.0)
== END ==
PROVIDERS: PCP Internal Medicine; Referring Provider Urology; Visit Provider Urology
DX: N21.0 Calculus in bladder (principal); R97.20 Elevated prostate specific antigen [PSA]; R05.3 Chronic cough
CPT/HCPCS: 0241U; 36415; 74018; 84153; 84154

== ENCOUNTER → 2024-06-14 16:12 | Outpatient (CLI) | payer MEDICARE, MEDICAID, SELFPAY ==
[2024-06-14 17:22] LABS: Hematocrit 38.5 % (41-53); Hemoglobin 13.1 g/dL (13.5-17.5); Mean Corpuscular HGB Conc 34.2 % (30-36); Mean Corpuscular Volume 90.9 fL (80-100); Platelet Count 162 X10^3/uL (150-400); Red Blood Cell Count 4.23 X10^6/uL (4.5-5.9); Red Cell Distribution Width 14.5 % (11.6-14.8); White Blood Cell Count 4.4 X10^3/uL (4.5-11.0)
[2024-06-14 18:00] LABS: Hemoglobin A1C% w Est Avg Glu 5.4 % (4.0-6.0)
[2024-06-14 18:03] LABS: Alanine Aminotransferase 29 IU/L (<50); Albumin 4.4 g/dL (3.5-5.0); Albumin Globulin Ratio 1.3 (1.0-2.8); Alkaline Phosphatase 102 U/L (38-126); Aspartate Aminotransferase 41 IU/L (17-59); BUN Creatinine Ratio 38.1 (6-22); Bilirubin Total 0.8 mg/dL (0.2-1.3); Blood Urea Nitrogen 24 mg/dL (9-20); Calcium 8.7 mg/dL (8.4-10.2); Carbon Dioxide 26 mmol/L (22-32); Chloride 106 mmol/L (98-107); Cholesterol 170 mg/dL (140-199); Estimated Glomerular Filt Rate > 60 mL/min (>60); Globulin 3.3 g/dL (1.7-4.1); Glucose 96 mg/dL (80-110); HDL Cholesterol 55 mg/dL (40-60); HEMOLYSIS 38 (0-50); LDL Cholesterol Calculated 97 mg/dL (<100); Potassium 4.7 mmol/L (3.4-5.1); Sodium 138 mmol/L (137-145); Total Protein 7.7 g/dL (6.3-8.2); Triglycerides 90 mg/dL (35-150)
[2024-06-14 18:30] LABS: TSH w/ Reflex to FT4 3.03 uIU/mL (0.47-4.68)
[2024-06-14 18:34] LABS: Carcinoembryonic Antigen 0.8 ng/mL (0.1-3.0)
== END ==
PROVIDERS: PCP Internal Medicine; Referring Provider Internal Medicine; Visit Provider Internal Medicine
DX: R73.01 Impaired fasting glucose (principal); E03.9 Hypothyroidism, unspecified; Z85.048 Personal history of other malignant neoplasm of rectum, rectosigmoid junction, and anus
CPT/HCPCS: 36415; 80053; 80061; 82378; 83036; 84443; 85027

== ENCOUNTER → 2025-05-24 08:44 | Outpatient (CLI) | payer MEDICARE, MEDICAID, SELFPAY | LOC: LAB 08:46 | PROVIDERS: PCP Internal Medicine; Referring Provider Urology; Visit Provider Urology | DX: R97.20 Elevated prostate specific antigen [PSA] (principal) | CPT/HCPCS: 36415; 84153; 84154 ==